=== PATIENT | female | born 1995 | race Caucasian/White ===

== ENCOUNTER 2025-10-22 00:14 | Emergency (ER) | payer OTHER, SELFPAY ==
[2025-10-22 01:04] VITALS: BP 120/79
[2025-10-22 02:08] VITALS: BMI 21.2
--- NOTE | 2025-10-22 02:09 | EDRN ---
Pt is 19 weeks and says she is severely constipated. Pt took miralax around [id number] and colace before that. Around 1700 pt used an enema, had small results and vomited afterwards. Call placed to OB and advised to take another dose of
miralax around 2100. Pt started vomiting which prompted visit to ED. Pt says she had a small BM yesterday morning and knows she has to go more but her stomach has been cramping. Pt has had problems with constipation during throughout this
. Colace usually helps and pt has never vomited due to constipation. Pt does not know when last normal BM was. [id number]. No nausea now, pt says she vomited when she got into ED room. Pt says the urge to vomit hits her suddenly. Pt with
constant cramping at this time mostly on L side. No fever/chills.
--- NOTE | 2025-10-22 02:33 | ED.GENMED ---
History of Present Illness
General
Chief Complaint: Bowel Problem
Source: patient
Exam Limitations: none
Time Seen by Provider: 10/22/25 02:14
Nursing documentation reviewed up to this point in time: agreed with
History of Present Illness
History of Present Illness:
30-year-old female 19 weeks first presents with constipation intermittently through feeling urge to have a bowel movement pain in her left abdomen able to urinate believes she might be having some difficulty, spoke with
her OB, referred here for evaluation no fevers, does feel like she will vomit with the pain took an enema at home with some relief
Past History
Past History
ED Past Medical History: None
ED Past Surgical History: None
Social History
Tobacco: Non-smoker
Alcohol: None
Drug: None
Personal: Single
Living: with family
Employment: Employed
Review of Systems
Review of Systems
All Other Systems: Not applicable
Constitutional: Denies fever
EENT: Reports no symptoms
Respiratory: Denies cough
Cardiac: Denies chest pain
ABD/GI: Reports abdominal pain, nausea, vomiting and constipated
: Reports no symptoms
Phy Exam
Physical Exam
Physical Exam:
Physical Exam
General: no apparent distress, not acutely ill
Neck: No jaw
Heart: s1/s2 regular rate and rhythm, no murmur. equal radial pulses.
Lungs: no acute respiratory distress. clear bilaterally
Abdomen: Gravid fundus at the umbilicus, rectal no external lesions, no impaction mild left lower left mid abdomen tender
Neuro: alert and oriented. no focal neurological deficits
Skin: no rash
Psychiatric: well kept. interactive and cooperative
Extremities: no edema.
Course
Orders/Labs/Results
Orders:
Orders
10/22/25 02:30
Heart Tones ONCE
Magnesium Citrate [Citroma] 300 ml PO ONCE ONE
10/22/25 05:02
Ondansetron Orally Disint [Zofran Odt (Orally Disintegrating)] 4 mg PO NOW STA
Vital Signs
Initial and Last Documented VS:
Initial Vital Signs
Temp Pulse Resp BP Pulse Ox
98.1 F 106 20 120/79 97
10/22/25 01:04 10/22/25 01:04 10/22/25 01:04 10/22/25 01:04 10/22/25 01:04
Last Documented Vital Signs
Temp Pulse Resp BP Pulse Ox
98.1 F 95 20 114/70 98
10/22/25 01:04 10/22/25 05:02 10/22/25 01:04 10/22/25 05:02 10/22/25 05:02
MDM/Problems Addressed
Differential Diagnosis Includes:
Constipation urinary tract pathology, obstipation urinary
MDM/Problems Addressed:
Constipation
*Pulse Oximetry
SaO2: 97
Oxygen Mode of Delivery: Room air
Patient hypoxic: no
*Critical Care Note
Total Time (30-74mins, 75-104mins- exclusive of procedures): Not Applicable
Update Note
Update Note:
6:30 AM, patient feeling better starting to pass gas, abdomen is soft no right-sided tenderness minimal left-sided tenderness reviewed further monitoring here like to hold on imaging, she may want an enema but like it off for now
ED Attending Note
-
Portions of this chart may have been created with voice recognition software.� Occasional wrong word or��sound alike� substitutions may have occurred due to the inherent limitations of voice recognition software.
Discharge Plan
Departure
Patient Disposition: Home (Routine Discharge)
Date of Disposition: 10/22/25
Time of Disposition: 06:28
Patient with high blood pressure during this ER visit?: No
Condition: Good
Discharge Problem:
Constipation
Instructions: Constipation, Adult (DC), Abdominal Pain
Prescriptions:
New
magnesium citrate [Citroma] Solution
300 ml PO DAILY PRN (Reason: Constipation) Qty: 296 2RF
ondansetron 4 mg tablet,disintegrating
4 mg PO Q8H PRN (Reason: nausea and vomiting) Qty: 10 0RF
No Action
PNV no.95-ferrous fumarate-FA [ Multivitamins] 28 mg iron- 800 mcg Tablet
1 tab PO DAILY
Referrals:
Magdalena Lindsey MD [Active, Gynecology] - Next open appointment
NONE,* [Family Provider, Internal Medicine]
Interventions
Interventions:
*General Assessment Last Done: 10/22/25 02:07
*Neglect/Abuse Screening Last Done: 10/22/25 02:07
*ED COVID-19 Vaccine History Last Done: 10/22/25 02:07
*ED Influenza Vaccine History Last Done: 10/22/25 02:07
[facility] Fall Risk Assessment Tool Last Done: 10/22/25 02:07
*Risk Screen - Suicide (C-SSRS) Last Done: 10/22/25 01:04
HH-Irsrxp-Rvenrwmwwu Assessment Last Done: 10/22/25 02:17
Discharge Date and Time
Print Language: FINNISH
[2025-10-22] MEDS: CITROMA 300 ML PO (02:36)
[2025-10-22 05:02] VITALS: BP 114/70
--- NOTE | 2025-10-22 05:02 | EDRN ---
Pt says she drank half the mag citrate and kept it down for about 1 hour then vomited. No BM. Pt unsure if she should drink more at this time. Dr Amador updated and will order agustín
[2025-10-22] MEDS: ZOFRAN ODT (ORALLY DISINTEGRATING) 4 MG PO (05:06)
--- NOTE | 2025-10-22 06:31 | EDRN ---
Pt drank 1/2 of the remaining 1/2 bottle of mag citrate. Pt says she felt full, cramping increased. Pt thought she was going to have a BM but says she has only been passing gas. Dr Amador was in to re-evaluate pt and suggested she get up and walk
around. Pt given another large cup of water per her request. No vomiting since zofran given.
--- NOTE | 2025-10-22 06:51 | EDRN ---
Pt given d/c instructions, all questions answered. Pt wants to wait about 30 minutes until she leaves. Report given to MANDA Sykes.
== END 2025-10-22 08:05 | disposition home or self-care (01) ==
LOC: EMR 00:14
PROVIDERS: EMERGENCY PHYSICIAN Emergency Medicine
DX: O99.612 Diseases of the digestive system complicating pregnancy, second trimester (principal); K59.00 Constipation, unspecified; Z3A.19 19 weeks gestation of pregnancy
CPT/HCPCS: 99283